=== PATIENT | female | born 1985 | race Caucasian/White ===

== ENCOUNTER 2019-04-25 01:07 | Emergency (ER) | payer OTHER ==
[~2019-04-25] VITALS: Ht 154.9 cm; Wt 52.2 kg
[2019-04-25 01:13] VITALS: BP_SYST 117
--- NOTE | 2019-04-25 01:13 | NUR ---
Patient to ER bed 07 to gown for evaluation. Side rails up.
--- NOTE | 2019-04-25 01:18 | NUR ---
Patient complaining of dysuria at midnight tonight. Pain 10/02. No other complaints/injuries per patient or as noted. Will continue to monitor.
--- NOTE | 2019-04-25 01:21 | NUR ---
ER at bedside examining patient.
[2019-04-25] MEDS ORDERED: PHENAZOPYRIDINE HCL 100 MG TABLET PO ONE (01:30)
[2019-04-25 01:50] VITALS: BP_SYST 117
--- NOTE | 2019-04-25 01:50 | NUR ---
Patient given written and verbal discharge instructions and verbalizes understanding. ER MD Dr. Mercado discussed with patient the results and treatment provided. Patient in stable condition. ID arm band removed. Rx of pyridium and cipro given. Patient educated on pain management and to follow up with PMD. Pain Scale 0/10. Opportunity for questions provided and answered. Medication side effect fact sheet provided.
== END 2019-04-25 01:50 | disposition home or self-care (01) ==
LOC: SED 01:07
DX: N39.0 Urinary tract infection, site not specified (principal); Z88.0 Allergy status to penicillin
CPT/HCPCS: 81002; 81025; 99283